=== PATIENT | male | born 1945 | race Caucasian/White ===

== ENCOUNTER 2016-11-16 14:12 | Emergency (ER) | payer MEDICARE, OTHER ==
[~2016-11-16] VITALS: Ht 181.6 cm; Wt 104.5 kg
[2016-11-16 14:21] VITALS: BP 164/87; RESP 16; O2SAT 97
[2016-11-16] MEDS ORDERED: WARF2.5T82 PO (14:27)
[2016-11-16] MEDS ORDERED: LOSA25TA21 PO (14:27)
[2016-11-16] MEDS ORDERED: SIMV20TA4 PO (14:27)
[2016-11-16] MEDS ORDERED: SERT50TA PO (14:27)
[2016-11-16 14:52] LABS: BASOPHILS % (AUTO) 0.7 % (0-3); EOSINOPHILS % (AUTO) 0.4 % (0-5); Mean Corpuscular Hemoglobin 30.8 pg (27.0-35.0); Mean Corpuscular Volume 87.1 fL (81-100); NEUTROPHILS % (AUTO) 76.7 % (40-74); Platelet Count 246 bil/L (150-400)
[2016-11-16 15:06] LABS: INR 2.04 ratio
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
[2016-11-16] MEDS ORDERED: Tranexamic Acid 100 mg/mL 10 mL Inj TOPICAL ONE (15:45)
== END 2016-11-16 17:40 | disposition home or self-care (01) ==
LOC: SED 14:12
DX: R04.0 Epistaxis (principal); Z79.01 Long term (current) use of anticoagulants; Z88.8 Allergy status to other drugs, medicaments and biological substances